=== PATIENT | male | born 1930 | race Caucasian/White ===

== ENCOUNTER 2016-12-21 11:14 | Inpatient (IN) ==
[2016-12-21 12:43] LABS: Basophils # (Auto) 0.1 K/mcL (0.0-0.3); Basophils % (Auto) 2.1 % (0.0-2.0); Eosinophils # (Auto) 0.2 K/mcL (0.0-0.7); Eosinophils % (Auto) 3.6 % (0.0-7.0); Granulocytes % (Auto) 61.4 % (38.0-78.0); Lymphocytes # (Auto) 1.2 K/mcL (1.5-4.8); Mean Cell Volume 95.1 fL (80.0-100.0); Mean Corpuscular HGB Conc 33.4 g/dL (31.0-36.0); Mean Corpuscular Hemoglobin 31.8 pg (26.0-34.0); Monocytes # (Auto) 0.4 K/mcL (0.1-0.9); Monocytes % (Auto) 8.9 % (1.0-9.0); Platelet Count 307 K/mcL (140-440); RBC 3.69 M/mcL (4.50-5.90); Red Cell Distribution Width 13.8 % (11.5-14.5)
--- NOTE | 2016-12-21 12:49 | Emergency Department Note ---
[id number] Recheck of lower extremity Time Seen by Provider: 12/21/16 11:28 Source: patient, family Mode of arrival: ambulatory Limitations: no limitations - History of Present Illness HPI Narrative: The patient is an 86-year-old male accompanied today by his son who presents with left lower extremity worsening cellulitis. He was seen here on December 16 and placed on oral Septra and IV think as an outpatient. He is on his sixth and last day of IV vancomycin and they're concerned as his symptoms appear to have gone much worse. His son describes that the left lower extremity swelling has significantly worsened and that the redness has extended up the leg. The patient is endorsing pain in the posterior and lateral aspect of the left lower extremity. He describes pain with slight extension. Reports that it hurts to bear weight on that leg. He denies any fevers, chills or night sweats. Denies any nausea or vomiting. He does have a resolving clot that was seen on ultrasound from December 05. There was no acute DVT at that time. What work from the showed a WBC of 7.2 area he does live alone. According to his son he has battled cellulitis in his left leg now 3 times. It initially occurred back in July, then August and most recently now here in November. He also had pneumonia last April but otherwise is fairly healthy. He does not smoke. Onset (ago): week(s) (1) Location: lower extremity (left) Severity: moderate Worsens with: movement - Related Data Home Medications Medication Instructions Recorded Confirmed ALPRAZolam [Xanax] 0.25 mg PO QHS PRN 12/16/16 12/21/16 Warfarin [Coumadin] 7.5 mg PO .COMPLEX 12/16/16 12/21/16 Previous Rx's Medication Instructions Recorded Hydrochlorothiazide [Oretic] 25 mg PO DAILY tab 05/15/16 Methimazole 10 mg PO MoWeFr@0900 tab 05/15/16 tamsulosin 0.4 mg capsule 0.4 mg PO QDAY #30 cap 09/26/16 metoprolol succinate ER 25 mg 12.5 mg PO DAILY #30 tab 11/19/16 tablet,extended release 24 hr warfarin 5 mg tablet 5 mg PO .COMPLEX #36 tab 11/19/16 Sulfamethoxazole/Trimethoprim 1 tab PO BID #20 tablet 12/16/16 [Bactrim Ds] Allergies Allergy/AdvReac Type Severity Reaction Status Date / Time No Known Drug Allergies Allergy Verified 12/11/16 10:53 Review of Systems All systems ED: reviewed and negative except as stated. Past Medical History - Past Medical History Attestation: Yes: The following information was validated with the patient. Medical history: Reports: arthritis, atrial fibrillation, DVT, hypertension, thyroid disease, other (prostate cancer, left lower extremity cellulitis) Surgical history ED: Reports: orthopedic, other (knee and back surgery) - Social History smoking status: Never smoker Alcohol use: Reports: None Drug use: Reports: none Physical Exam - General Limitations: no limitations, other (elderly) General appearance: alert, in no apparent distress - Head Head exam: atraumatic - ENT ENT exam: normal exam - Neck Neck exam: Present: normal inspection - Chest Chest inspection: Present: normal inspection, symmetric chest wall rise - Respiratory Respiratory exam: Present: normal lung sounds bilaterally - Cardiovascular Cardiovascular exam: Present: regular rate, normal rhythm - Abdominal Exam Abdominal exam: Present: soft, normal bowel sounds - Expanded Lower Extremity Exam Lower leg exam: Present: other (right lower leg has venous stasis present, left lower leg is significantly swollen with darker erythema and skin changes towards the ankle and then brighter erythema extending up more than fci up the calf, warm to the touch, tendern to palpation along posterior aspect of the calf and the lateral side, full flexion without issue at the foot but pain with extension, 2+ pitting edema up until almost the patella. ) Ankle exam: Present: swelling (pitting 2+) Neurovascular/Tendon exam: Present: normal capillary refill - Neurological Exam Neurological exam: Present: alert, oriented X3 - Skin Skin exam: Present: warm, dry, rash (see lower leg exam details) Course Course Narrative: Patient presented for his normal vancomycin infusion glasses symptoms seem to be getting worse and this is his last dose they wanted him checked out. On exam he certainly appears to have worsening lower extremity erythema, warmth and swelling. He does have a known DVT last checked on December 05. Going to get a repeat lower shimmery ultrasound to evaluate for a new thrombus. Also get blood work to evaluate for infection as well as blood cultures to rule out bacteremia. I'm very suspicious that this patient may need to be admitted for IV antibiotics. Follow-up the results Vital Signs Temperature 97.1 F L 12/21/16 11:16 Pulse Rate 67 12/21/16 11:16 Respiratory Rate 18 12/21/16 11:16 Blood Pressure 135/71 12/21/16 11:16 Temperature 98.1 F 12/22/16 04:00 Pulse Rate 72 12/22/16 04:00 Respiratory Rate 16 12/22/16 04:00 Blood Pressure 122/58 12/22/16 04:00 Pulse Oximetry (%) 96 12/22/16 04:00 Medical Decision Making - MDM Narrative Medical decision making narrative: Patient's blood work was unremarkable with a normal white blood cell count. Ultrasound showed his chronic thrombus with no sign of new clot formation. However due to the severity of his erythema and swelling and history of improving with vancomycin in the past I'm very suspicious he is admitted for further observation. Spoke with the hospitalist who agrees with this plan. She has agreed to admit him to the hospital service. - Lab Data Lab results reviewed: Yes I reviewed the patient's lab results. Result diagrams: 12/22/16 03:35 12/21/16 12:00 Lab Results 12/21/16 12/21/16 12/21/16 Range/Units 11:52 12:00 12:00 WBC 5.0 (4.5-11.0) K/mcL RBC 3.69 L (4.50-5.90) M/mcL Hgb 11.7 L (13.5-16.5) g/dL Hct 35.1 L (41.0-55.0) % MCV 95.1 (80.0-100.0) fL MCH 31.8 (26.0-34.0) pg MCHC 33.4 (31.0-36.0) g/dL RDW 13.8 (11.5-14.5) % Plt Count 307 (140-440) K/mcL MPV 7.4 (7.4-10.4) fL Gran % 61.4 (38.0-78.0) % Lymph % (Auto) 24.0 (15.5-49.0) % Waller % (Auto) 8.9 (1.0-9.0) % Eos % (Auto) 3.6 (0.0-7.0) % Baso % (Auto) 2.1 H (0.0-2.0) % Gran # 3.1 (1.8-8.0) K/mcL Lymph # 1.2 L (1.5-4.8) K/mcL Waller # 0.4 (0.1-0.9) K/mcL Eos # 0.2 (0.0-0.7) K/mcL Baso # 0.1 (0.0-0.3) K/mcL ESR 89 H (0-15) mm/hr PT 27.7 H (11.9-14.5) sec INR 2.5 H (0.9-1.1) Sodium 138 (133-145) mmol/L Potassium 4.5 (3.3-5.1) mmol/L Chloride 99 (96-108) mmol/L Carbon Dioxide 26 (22-30) mmol/L Anion Gap 13.0 (8-16) BUN 14 (8-23) mg/dl Creatinine 1.1 (0.7-1.2) mg/dl GFR Calculation 60 Glucose 96 (70-105) mg/dL Hemoglobin A1c (4.0-6.0) % HGB Estim Average Glucose mg/dL Calcium 9.4 (8.6-10.4) mg/dl Total Bilirubin 0.3 (0.0-1.0) mg/dL AST 12 (0-37) U/l ALT 11 (0-40) U/l Alkaline Phosphatase 59 (39-117) U/L C-Reactive Protein 4.4 H (0.0-0.8) mg/dl Total Protein 7.3 (5.9-8.4) gm/dL Albumin 3.8 (3.2-5.2) gm/dL Globulin 3.5 (2.2-3.7) gm/dL Albumin/Globulin Ratio 1.1 (1.0-2.3) Urine Color Urine Appearance Urine pH (5.0-9.0) Ur Specific Riparius (1.000-1.035) Urine Protein (NEG) mg/dL Urine Glucose (UA) (NEG) mg/dL Urine Ketones (NEG) mg/dL Urine Occult Blood (<0.03) mg/dL Urine Nitrate (NEG) Urine Bilirubin (NEG) mg/dL Urine Urobilinogen (NEG) mg/dL Ur Leukocyte Esterase (NEG) /uL Urine RBC (0-1) /hpf Urine WBC (0-4) /hpf Ur Squamous Epith Cells (0-4) /hpf Urine Bacteria (0) /hpf Ur Culture Indicated? 12/21/16 12/21/16 Range/Units 12:00 13:07 WBC (4.5-11.0) K/mcL RBC (4.50-5.90) M/mcL Hgb (13.5-16.5) g/dL Hct (41.0-55.0) % MCV (80.0-100.0) fL MCH (26.0-34.0) pg MCHC (31.0-36.0) g/dL RDW (11.5-14.5) % Plt Count (140-440) K/mcL MPV (7.4-10.4) fL Gran % (38.0-78.0) % Lymph % (Auto) (15.5-49.0) % Waller % (Auto) (1.0-9.0) % Eos % (Auto) (0.0-7.0) % Baso % (Auto) (0.0-2.0) % Gran # (1.8-8.0) K/mcL Lymph # (1.5-4.8) K/mcL Waller # (0.1-0.9) K/mcL Eos # (0.0-0.7) K/mcL Baso # (0.0-0.3) K/mcL ESR (0-15) mm/hr PT (11.9-14.5) sec INR (0.9-1.1) Sodium (133-145) mmol/L Potassium (3.3-5.1) mmol/L Chloride (96-108) mmol/L Carbon Dioxide (22-30) mmol/L Anion Gap (8-16) BUN (8-23) mg/dl Creatinine (0.7-1.2) mg/dl GFR Calculation Glucose (70-105) mg/dL Hemoglobin A1c 6.1 H (4.0-6.0) % HGB Estim Average Glucose 128 mg/dL Calcium (8.6-10.4) mg/dl Total Bilirubin (0.0-1.0) mg/dL AST (0-37) U/l ALT (0-40) U/l Alkaline Phosphatase (39-117) U/L C-Reactive Protein (0.0-0.8) mg/dl Total Protein (5.9-8.4) gm/dL Albumin (3.2-5.2) gm/dL Globulin (2.2-3.7) gm/dL Albumin/Globulin Ratio (1.0-2.3) Urine Color Yellow Urine Appearance Clear Urine pH 7.0 (5.0-9.0) Ur Specific Riparius 1.009 (1.000-1.035) Urine Protein Neg (NEG) mg/dL Urine Glucose (UA) Negative (NEG) mg/dL Urine Ketones Neg (NEG) mg/dL Urine Occult Blood Neg (<0.03) mg/dL Urine Nitrate Neg (NEG) Urine Bilirubin Neg (NEG) mg/dL Urine Urobilinogen Neg (NEG) mg/dL Ur Leukocyte Esterase Neg (NEG) /uL Urine RBC 9 H (0-1) /hpf Urine WBC 2 (0-4) /hpf Ur Squamous Epith Cells 0 (0-4) /hpf Urine Bacteria 0 (0) /hpf Ur Culture Indicated? No Disposition Clinical Impression: Cellulitis Disposition: Xfer As Inpt ([facility]) Condition: Fair
[2016-12-21 13:03] LABS: ALT/SGPT 11 U/l (0-40); Albumin 3.8 gm/dL (3.2-5.2); Albumin/Globulin Ratio 1.1 (1.0-2.3); Alkaline Phosphatase 59 U/L (39-117); Blood Urea Nitrogen 14 mg/dl (8-23); C-Reactive Protein 4.4 mg/dl (0.0-0.8)
[2016-12-21 13:23] LABS: Erythrocyte Sedimentation Rate 89 mm/hr (0-15)
--- NOTE | 2016-12-21 13:30 | Ultrasound Report ---
CLINICAL INFORMATION: Leg pain and swelling TECHNIQUE: Grayscale and color flow spectral imaging COMPARISON: Previous examinations dated 12/05/2016, 04/17/2016, 06/12/2016 FINDINGS: Changes consistent with chronic deep venous thrombosis in the distal superficial femoral vein and popliteal vein. Appearance is consistent with recanalized clot. This is nonocclusive. No new abnormalities. Normal left common femoral vein, greater saphenous vein, posterior tibial veins, and peroneal veins. IMPRESSION: 1. Chronic recanalized clot in the left superficial femoral vein and popliteal vein. Findings are unchanged. 2. No new abnormalities. No acute deep venous thrombosis Interpreted and Authenticated by: Fernando Bajwa 12/21/16
[2016-12-21 13:38] LABS: Appearance,Urine CLEAR; Bacteria,Urine 0 /hpf (0); Bilirubin,Urine NEG (NEG); Color,Urine YELLOW; Glucose,Urine (UA) NEGATIVE (NEG); Leukocyte Esterase,Urine NEG /uL (NEG); Nitrate,Urine NEG (NEG); Protein,Urine NEG (NEG); Specific Gravity,Urine 1.009 (1.000-1.035); Urine Blood NEG mg/dL (<0.03); Urine RBC 9 /hpf (0-1); Urine Squamous Epithelial Cell 0 /hpf (0-4); Urine WBC 2 /hpf (0-4); Urobilinogen,Urine NEG (NEG)
--- NOTE | 2016-12-21 16:24 | Internal Med History&Physical ---
Medical - H&P: HPI Patient information: Note initiated : 12/21/16 at 4:24 pm Service Date, if different from initiated Date: [] Patient: Mak Persaud 86 y/o M admitted on for Recheck of lower extremity. Chief Complaint: [] History of present illness: Mr. Persaud is a 86 year old male with a recent history of stubborn cellulitis of his left lower extremity. He and his son tell me that he was diagnosed with left lower extremity cellulitis several weeks ago. He was given a course of oral antibiotics, and seemed to get better. Shortly after that the cellulitis recurred, and he was treated with another round of antibiotics, which seemed to improve things then. He then developed a third episode andhe was ultimately started on IV vancomycin plus oral Septra. he came in today for his final dose of vancomycin, but the son noted that his leg is now even more swollen and more red than it was a few days ago He was therefore sent over to the emergency room for evaluation. The patient reports he has not been having fever or chills. But he has been having increasing discomfort in the left lower leg. He is also noticed the increased swelling and increased redness and warmth. He is no longer wearing the compression hose on that leg. He notes he does not do a lot of sitting around, and is usually up walking around quite a bit during the day. eR evaluation did not show an elevated white blood cell count but clinically his leg is definitely getting worse. he is afebrile. white blood cell count is normal.owever, sedimentation rate is quite high at 89. C-reactive protein is also elevated at 4.4. It is felt that he is definitely failing outpatient management, and is therefore admitted for further investigation and treatment. otherwise, the patient notes that he is lightheaded when he first stands up, and tends to have poor balance, when he first tries to walk in the morning, but this resolves within a minute or so. He denies blurry vision, new eye or ear symptoms, sore throat or cough, chest pain or palpitations, chest pain or shortness of breath abdominal pain or nausea or vomiting, diarrhea or constipation. He does note nocturia 3-4 times a night, which has been an ongoing thing.Of note, he was recently diagnosed with prostate cancer and is undergoing hormonal treatment for that. Also he was diagnosed with DVT recently, and is maintained on warfarin for that. Follow-up Doppler ultrasound today showed stable DVT. [facility] Medical History Anxiety (Acute) Arthritis (Acute) 2015 Right hip Atrial fibrillation and flutter (Acute) 2013 Cellulitis of left leg (Acute) Cellulitis of left lower extremity (Acute) 2016 Cellulitis of left lower leg (Acute) Claudication (Acute) DVT (deep venous thrombosis) (Acute) 2016 Lower left leg Elevated d-dimer (Acute) History of cardioversion (Acute) Hypertension (Acute) Hyperthyroidism (Acute) Left leg DVT (Acute) Left leg cellulitis (Acute) Low back pain (Acute) Neuropathy, peripheral (Acute) Peripheral vascular disease (Acute) Pneumonia (Acute) Prostate cancer (Acute) Prostate cancer (Acute) 2015 Stasis dermatitis (Acute) Actinic keratosis (Chronic) of the face (07/29/2014 Dr Abbott) Basal cell carcinoma (Chronic) RT zygoma and RT nasal labial fold (07/29/2014 Dr Abbott) Bleeding tendency (Chronic) Bundle branch block (Chronic) abnormal right Degenerative disc disease, lumbar (Chronic) Degenerative joint disease (DJD) of hip (Chronic) Left hip 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 MAY NOT FILL UNTIL 11/23/16 hydrochlorothiazide 25 mg PO DAILY methimazole 10 mg PO MoWeFr@0900 metoprolol succinate ER 12.5 mg PO DAILY tamsulosin 0.4 mg PO QDAY warfarin 7.5 mg M/W/F, 5 mg x 4 days warfarin 7.5 mg M/W/F, 5 mg x 4 days vancomycinI believe 1 g IV daily, for the last 7 days. Bactrim DS 1 by mouth twice a day Allergies/Adverse Reactions No Known Drug Allergies Allergy Family History Brother History of coronary artery bypass surgery x2 Heart attack Diabetes Peripheral Vascular Disease Father Bladder cancerand perhaps heart disease. Mother Heart attack, mother unexpectedly postoperatively. His son with lung cancer. His daughter with ALS. Social History marital status: single-. Lives alone. smoking status: Former smoker; he smoked from about the age of 18 until 33, and then quit. alcohol intake frequency: does not drink substance use type: does not use he has one son that lives here in the [facility], another son that I believe lives in [place], and then a daughter that lives in [place]. Medical - H&P: Meds Home Medications Medication Instructions Recorded Confirmed Type ALPRAZolam [Xanax] 0.25 mg PO QHS PRN 12/16/16 12/21/16 History Warfarin [Coumadin] 7.5 mg PO .COMPLEX 12/16/16 12/21/16 History Allergies Allergy/AdvReac Type Severity Reaction Status Date / Time No Known Drug Allergies Allergy Verified 12/11/16 10:53 Medical - H&P: Exam - Constitutional Vitals: Temp Pulse Resp BP Pulse Ox 97.1 F L 60 18 154/87 97 12/21/16 11:16 12/21/16 15:58 12/21/16 11:16 12/21/16 15:58 12/21/16 15:58 Exam: on exam, the patient is awake and alert. He is quite hard of hearing, but has a remarkably good memory. Head: Normocephalic, atraumatic. Eyes: PERRLA, EOMI, anicteric. Ears: TMs and canals are clear. Pharynx:Anxious clear, the mucosa is a bit dry. Neck: Is supple, without obvious lymphadenopathy, JVD, thyromegaly, bruits. Cardiac exam: Shows regular rate and rhythmbnormal with normal S1 and S2. No murmurs rubs or gallops are noted. lungs: Are clear to auscultation, without rales, rhonchi, wheezes. Abdomen: Is soft and nontender without obvious masses. Bowel sounds are normoactive. Extremities: Right lower extremity appears fairly normal without significant edema. Left lower extremity: Has marked edema, approximately 4+ and pitting, to about the level of the knee. There is increased redness, and weeping of serous sanguinous fluid. the leg is warm to the touch. It is quite tender. neurologic exam:The patient is alert and oriented, calm and cooperative. He is hard of hearing. Cranial nerves are grossly intact. Motor exam is grossly nonfocal. Medical - H&P: Reslt - Labs CBC & Chem 7: 12/21/16 12:00 12/21/16 12:00 Labs: Short CBC 12/21/16 Range/Units 12:00 WBC 5.0 (4.5-11.0) K/mcL Hgb 11.7 L (13.5-16.5) g/dL Hct 35.1 L (41.0-55.0) % Plt Count 307 (140-440) K/mcL BMP 12/21/16 12:00 Sodium 138 Potassium 4.5 Chloride 99 Carbon Dioxide 26 BUN 14 Creatinine 1.1 Glucose 96 Calcium 9.4 Liver Function 12/21/16 Range/Units 12:00 Total Bilirubin 0.3 (0.0-1.0) mg/dL AST 12 (0-37) U/l ALT 11 (0-40) U/l Alkaline Phosphatase 59 (39-117) U/L Albumin 3.8 (3.2-5.2) gm/dL Urine 12/21/16 Range/Units 13:07 Urine Color Yellow Urine Appearance Clear Urine pH 7.0 (5.0-9.0) Ur Specific [place] 1.009 (1.000-1.035) Urine Protein Neg (NEG) mg/dL Urine Glucose (UA) Negative (NEG) mg/dL sedimentation rate is elevated at 89. CRP is elevated at 4.4 Hemoglobin A1c is pending. Urinalysis shows 9 red blood cells, and is otherwise normal. eft lower extremity venous Doppler shows changes consistent with chronic DVTin the distal superficial femoral and popliteal veins Appearance is consistent with recanalized clot. This is nonocclusive. This is compared to a study from June 12, 2016, and is essentially unchanged. 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 Infectious disease. This patient presents with increasing swelling, erythema, warmth of his left lower extremity. He appears to be failing outpatient management with IV vancomycin plus oral Bactrim. His leg is so swollen that there are no open areas that are weeping fluid. It would appear that perhaps he has developed an infection with a drug-resistant organism.- -He has failed outpatient management. He will now be admitted, and started on ertapenem plus vancomycin.-I have also requested consultation with Dr. Montanez of wound care.-Blood cultures are pending. #2. Patient has known vascular disease, as well as chronic DVT of the left lower extremity. -he will continue with Coumadin, and this will be managed by pharmacy.- -Venous Doppler does not show any signs of new DVT. Chronic DVT could certainly cause increased swelling in the leg, but would not explainthe other signs and symptoms noted in his leg today. #3. CODE STATUS: The patient has a living will that is with his son who is out of town. After discussion with he and the son that it was was in the room, it appears he would like to be full code, but would never like to be maintained on long-term life support. #4. . -Patient has a long-standing history of BPH, and also recent diagnosis of prostate cancer, for which she says he's been treated with hormonetherapy. -Dr. Booker suggested perhaps getting an abdominal CT to be sure there is not metastatic disease in the abdomen that is contributing to the patient's swelling.-Continue tamsulosin, and probably Lupron. 35. Cardiac. -History of paroxysmal atrial fibrillation and DVT. Patient does continue on Coumadin. -Hypertension-continue metoprololand hydrochlorothiazide. #6. History of anxiety.continue when necessary Xanax. #7. History of hyperthyroidism. Patient is maintained on methimazole. #8. History of neuropathy. this visit has taken proximally 60 minutes of our today, to review his case with the [facility], review his records, interview and examine the patient and review plan of care with him and with his son, and write orders.
[2016-12-21] MEDS ORDERED: VANCOMYCIN PER PHARMACY IV ONE (16:39)
[2016-12-21] MEDS ORDERED: CALCIUM CARBONATE 500 MG TAB.CHEW CHEWED PRN (16:39)
[2016-12-21] MEDS ORDERED: ONDANSETRON 4 MG/2 ML VIAL IV PRN (16:39)
[2016-12-21] MEDS ORDERED: MAGNESIUM HYDROXIDE 30 ML ORAL.SUSP PO PRN (16:39)
[2016-12-21] MEDS ORDERED: HYDROcodone/APAP 5/325MG TABLET PO PRN (16:39)
[2016-12-21] MEDS ORDERED: NALOXONE HCL 0.4 MG/ML VIAL IV PRN (16:39)
[2016-12-21] MEDS ORDERED: DOCUSATE SODIUM 100 MG CAPSULE PO PRN (16:39)
[2016-12-21] MEDS ORDERED: ACETAMINOPHEN 325 MG TABLET PO PRN (16:39)
[2016-12-21 17:55] LABS: Hemoglobin A1C 6.1 % HGB (4.0-6.0)
[2016-12-21] MEDS: ERTAPENEM 1 GM in 0.9 % SODIUM CHLORIDE 50 ML IV SCH (20:05)
[2016-12-21] MEDS: ALPRAZolam 0.25 MG TABLET PO PRN (20:06)
[2016-12-21] MEDS ORDERED: WARFARIN 5 MG TABLET PO ONE (21:00)
[2016-12-21] MEDS: 0.9 % SODIUM CHLORIDE 10 ML SYRINGE IV SCH (22:43)
[2016-12-22 05:44] LABS: Mean Cell Volume 96.6 fL (80.0-100.0); Mean Corpuscular HGB Conc 32.9 g/dL (31.0-36.0); Mean Corpuscular Hemoglobin 31.7 pg (26.0-34.0); Platelet Count 277 K/mcL (140-440); RBC 3.43 M/mcL (4.50-5.90); Red Cell Distribution Width 13.7 % (11.5-14.5)
[2016-12-22] MEDS: 0.9 % SODIUM CHLORIDE 10 ML SYRINGE IV SCH ×3 (05:58→21:38)
[2016-12-22 06:32] LABS: Erythrocyte Sedimentation Rate 73 mm/hr (0-15)
[2016-12-22 06:33] LABS: ALT/SGPT 9 U/l (0-40); Albumin 3.4 gm/dL (3.2-5.2); Albumin/Globulin Ratio 1.1 (1.0-2.3); Alkaline Phosphatase 54 U/L (39-117); Bilirubin,Direct < 0.2 mg/dL (0.0-0.3); Blood Urea Nitrogen 14 mg/dl (8-23); Gamma Glutamyl Transpeptidase 15 U/L (8-61); Magnesium 2.2 mg/dL (1.6-2.5); Phosphorous 3.1 mg/dL (2.7-4.5); Uric Acid 2.9 mg/dL (2.5-8.0)
[2016-12-22 07:03] LABS: Band Neutrophils % 2 % (0-10); Eosinophils % (Manual) 8 % (0-7); Lymphocytes % 33 % (15-49); Monocytes % (Manual) 6 % (1-9); Platelet Estimate NORMAL (NORMAL); RBC Morphology NORMAL (NORMAL); Segmented Neutrophils % 49 % (38-78)
[2016-12-22] MEDS: ERTAPENEM 1 GM in 0.9 % SODIUM CHLORIDE 50 ML IV SCH (09:00)
[2016-12-22] MEDS: TAMSULOSIN 0.4 MG CAPSULE PO SCH (09:01)
[2016-12-22] MEDS: METOPROLOL SUCCINATE 25 MG TAB.XL.24H PO SCH (09:01)
[2016-12-22] MEDS: HYDROCHLOROTHIAZIDE 25 MG TABLET PO SCH (09:01)
[2016-12-22] MEDS: VANCOMYCIN 2,000 MG in 0.9 % SODIUM CHLORIDE 500 ML IV SCH (10:34)
--- NOTE | 2016-12-22 11:27 | General Surgery Consult Note ---
[id number] Date: [] Patient: Mak Persaud 86 y/o M admitted on 12/21/16 for Recheck of lower extremity. Chief Complaint: []Admitted via ER to hospitalist service for DVT with cellulitis of LEFT LE. No open skin wound. Patient was seen in wound center in past. 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 Consult date: 12/22/16 Requesting physician: Caterina Cortes History of present illness: Persistent ??? Propagating Venous Thromboembolism LEFT LE. 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 Past h/o Prostrate cancer treated with RT. Patient was last seen in wound center last week, but later he presented to ER and NOW admitted for DVT ( Chronic ) / Cellulitis LEFT LE. Past h/o PNA. Currently has some lightheadedness with change of position , but it improves in a short time. Review of Systems - Constitutional other (No h/o constitutional symptoms. ) - Integumentary change in pigmentation, dry skin, swelling, other (Cellulitis LEFT leg responding to IV antibiotics and elevation) Medications and Allergies Home Medications Medication Instructions Recorded Confirmed Type ALPRAZolam [Xanax] 0.25 mg PO QHS PRN 12/16/16 12/21/16 History Lupron Depot 22.5 mg IM 12/22/16 History Warfarin [Coumadin] 5 mg PO SUMOWEFRSA@1400 12/22/16 12/22/16 History Warfarin [Coumadin] 7.5 mg PO TUTH@1400 12/22/16 12/22/16 History Allergies Allergy/AdvReac Type Severity Reaction Status Date / Time No Known Drug Allergies Allergy Verified 12/11/16 10:53 Exam Temp Pulse Resp BP Pulse Ox 97.3 F L 62 16 142/69 97 12/22/16 11:19 12/22/16 11:19 12/22/16 11:19 12/22/16 11:19 12/22/16 11:19 - General physical appearance well developed, well nourished, no distress, no pain - Eyes PERRL, normal ocular movement - ENT normal pinna, normal nares, normal mucosa, no congestion - Head Head exam IM: Present: atraumatic, normal inspection, normocephalic - Neck no masses, no bruits, trachea midline, no lymphadectomy, no venous distension - Cardiovascular Cardiovascular exam IM: Present: normal rate and rhythm - Respiratory normal expansion, normal respiratory effort, clear to auscultation - Abdomen Abdomen: Present: soft, non tender, bowel sounds - Integumentary Present: other (Pigmentation LLE with resolving cellulitis and peeling away of skin. ) - Neurologic Present: normal coordination, normal sensation - Musculoskeletal Present: normal gait - Psychiatric Present: oriented to time, oriented to person, oriented to place, speech is normal, memory intact Results - Labs 12/23/16 05:10 12/22/16 03:35 Abnormal lab results 12/22/16 12/22/16 Range/Units 03:35 03:35 RBC 3.43 L (4.50-5.90) M/mcL Hgb 10.9 L (13.5-16.5) g/dL Hct 33.1 L (41.0-55.0) % Eosinophils % (Manual) 8 H (0-7) % ESR 73 H (0-15) mm/hr PT 27.7 H (11.9-14.5) sec INR 2.5 H (0.9-1.1) Diabetes panel 12/22/16 Range/Units 03:35 Sodium 138 (133-145) mmol/L Potassium 4.3 (3.3-5.1) mmol/L Chloride 102 (96-108) mmol/L Carbon Dioxide 25 (22-30) mmol/L BUN 14 (8-23) mg/dl Creatinine 1.0 (0.7-1.2) mg/dl Glucose 96 (70-105) mg/dL Calcium 9.1 (8.6-10.4) mg/dl AST 11 (0-37) U/l ALT 9 (0-40) U/l Alkaline Phosphatase 54 (39-117) U/L Total Protein 6.6 (5.9-8.4) gm/dL Albumin 3.4 (3.2-5.2) gm/dL Triglycerides 55 (<150) mg/dl Calcium panel 12/22/16 Range/Units 03:35 Calcium 9.1 (8.6-10.4) mg/dl Phosphorus 3.1 (2.7-4.5) mg/dL Albumin 3.4 (3.2-5.2) gm/dL Pituitary panel 12/22/16 Range/Units 03:35 Sodium 138 (133-145) mmol/L Potassium 4.3 (3.3-5.1) mmol/L Chloride 102 (96-108) mmol/L Carbon Dioxide 25 (22-30) mmol/L BUN 14 (8-23) mg/dl Creatinine 1.0 (0.7-1.2) mg/dl Glucose 96 (70-105) mg/dL Calcium 9.1 (8.6-10.4) mg/dl Adrenal panel 12/22/16 Range/Units 03:35 Sodium 138 (133-145) mmol/L Potassium 4.3 (3.3-5.1) mmol/L Chloride 102 (96-108) mmol/L Carbon Dioxide 25 (22-30) mmol/L BUN 14 (8-23) mg/dl Creatinine 1.0 (0.7-1.2) mg/dl Glucose 96 (70-105) mg/dL Calcium 9.1 (8.6-10.4) mg/dl Total Bilirubin 0.3 (0.0-1.0) mg/dL AST 11 (0-37) U/l ALT 9 (0-40) U/l Alkaline Phosphatase 54 (39-117) U/L Total Protein 6.6 (5.9-8.4) gm/dL Albumin 3.4 (3.2-5.2) gm/dL All other labs normal. Assessment and Plan (1) Thrombophlebitis, migratory Past h/o Prostrate Cancer treated with RT. Concerning for vena caval thrombosis. Need to rule this out. Will await a CT scan of abdomen, pelvis with IV and PO contrast. Agree with IV antibiotics for cellulitis of Left leg and conservative management for leg swelling with elevation. Status: Suspected Priority: Medium
--- NOTE | 2016-12-22 13:35 | Internal Med Progress Note ---
Medical - PN: Subj Patient information: Note initiated : 12/22/16 at 1:35 pm Service Date, if different from initiated Date: [] Patient: Mak Persaud 86 y/o M admitted on 12/21/16 for Recheck of lower extremity. Chief Complaint: [] Interval history: 12/21/16:History of present illness: Mr. Persaud is a 86 year old male with a recent history of stubborn cellulitis of his left lower extremity. He and his son tell me that he was diagnosed with left lower extremity cellulitis several weeks ago. He was given a course of oral antibiotics, and seemed to get better. Shortly after that the cellulitis recurred, and he was treated with another round of antibiotics, which seemed to improve things then. He then developed a third episode andhe was ultimately started on IV vancomycin plus oral Septra. he came in today for his final dose of vancomycin, but the son noted that his leg is now even more swollen and more red than it was a few days ago He was therefore sent over to the emergency room for evaluation. The patient reports he has not been having fever or chills. But he has been having increasing discomfort in the left lower leg. He is also noticed the increased swelling and increased redness and warmth. He is no longer wearing the compression hose on that leg. He notes he does not do a lot of sitting around, and is usually up walking around quite a bit during the day. eR evaluation did not show an elevated white blood cell count but clinically his leg is definitely getting worse. he is afebrile. white blood cell count is normal.owever, sedimentation rate is quite high at 89. C-reactive protein is also elevated at 4.4. It is felt that he is definitely failing outpatient management, and is therefore admitted for further investigation and treatment. otherwise, the patient notes that he is lightheaded when he first stands up, and tends to have poor balance, when he first tries to walk in the morning, but this resolves within a minute or so. He denies blurry vision, new eye or ear symptoms, sore throat or cough, chest pain or palpitations, chest pain or shortness of breath abdominal pain or nausea or vomiting, diarrhea or constipation. He does note nocturia 3-4 times a night, which has been an ongoing thing.Of note, he was recently diagnosed with prostate cancer and is undergoing hormonal treatment for that. Also he was diagnosed with DVT recently, and is maintained on warfarin for that. Follow-up Doppler ultrasound today showed stable DVT. 12/22: the patient says he thinks he is feeling better today. He is really not having much discomfort in his leg, and does think it is less swollen. He notes he met with Dr. Montanez earlier today, who wants to do a CAT scan. Otherwise, patient denies fever or chills, chest pain or shortness of breath, abdominal pain, dysuria. - Constitutional Vitals: Vital Signs Temp Pulse Resp BP Pulse Ox 97.3 F L 62 16 142/69 97 12/22/16 11:19 12/22/16 11:19 12/22/16 11:19 12/22/16 11:19 12/22/16 11:19 Period Temp Pulse Resp BP Sys/Clark Pulse Ox Last 24 Hr 97.3 F-98.1 F 62-74 16-18 118-148/53-80 95-98 Intake and Output 12/21/16 12/22/16 12/22/16 21:59 05:59 13:59 Intake Total 290 / 290 300 / 300 1130 / 1130 Output Total 575 / 575 350 / 350 Balance -285 / -285 -50 / -50 1130 / 1130 Weight 214 lb Intake & Output: Intake & Output 12/21/16 12/22/16 12/22/16 21:59 05:59 13:59 Intake Total 290 / 290 300 / 300 1130 / 1130 Output Total 575 / 575 350 / 350 Balance -285 / -285 -50 / -50 1130 / 1130 Weight 214 lb Intake: IV 50 / 50 50 / 50 Sodium Chloride 0.9% 50 50 / 50 50 / 50 ml @ 100 mls/hr IV DAILY DIPTI with INVanz 1 GM Rx#: [id number] Oral 240 / 240 300 / 300 1080 / 1080 Output: Void Amount 575 / 575 350 / 350 Other: Meal Dinner Breakfast Percent of Meal Consumed 100% 100% Feeding Ability Independent Independent # Voids 1 Exam: on exam, patient is sitting up in a chair, visiting with his granddaughter. He is in no acute distress. Neck is supple without obvious lymphadenopathy or JVD. Cardiac exam shows regular rate and rhythm. Lungs are clear to auscultation. Abdomen is soft and nontender. Extremities:Right lower extremity shows no edema. Left lower extremity continues to show significant edema, but the bright red colorbfrom last night is markedly less intense, and the swelling has decreased quite a bit as well. Neurologic exam is grossly nonfocal. Medical - PN: Obj Da - Labs CBC & Chem 7: 12/22/16 03:35 12/22/16 03:35 Labs: Abnormal Lab Results 12/22/16 12/22/16 03:35 03:35 RBC 3.43 L Hgb 10.9 L Hct 33.1 L Eosinophils % (Manual) 8 H ESR 73 H PT 27.7 H INR 2.5 H 12/22: Blood cultures are negative so far. 12/21: sedimentation rate is elevated at 89. CRP is elevated at 4.4 Hemoglobin A1c is pending. Urinalysis shows 9 red blood cells, and is otherwise normal. left lower extremity venous Doppler shows changes consistent with chronic DVTin the distal superficial femoral and popliteal veins Appearance is consistent with recanalized clot. This is nonocclusive. This is compared to a study from June 12, 2016, and is essentially unchanged. Meds: Medications Acetaminophen (Tylenol) 650 mg PO Q6HP PRN PRN Reason: PAIN/FEVER > 101 Acetaminophen/Hydrocodone Bitart ([place] 5/325mg) 1 tab PO Q4HP PRN PRN Reason: Pain Alprazolam (Xanax) 0.25 mg PO QHS PRN PRN Reason: Anxiety Last Admin: 12/21/16 20:06 Dose: 0.25 mg Calcium Carbonate/Glycine (Tums) 1,000 mg CHEWED Q4HP PRN PRN Reason: Dyspepsia Docusate Sodium (Colace) 100 mg PO BID PRN PRN Reason: Constipation Hydrochlorothiazide (Oretic) 25 mg PO DAILY [facility] Last Admin: 12/22/16 09:01 Dose: 25 mg Ertapenem 1 gm/ Sodium (Chloride) 50 mls @ 100 mls/hr IV DAILY [facility] Last Infusion: 12/22/16 09:30 Dose: Infused Vancomycin HCl 2,000 mg/ (Sodium Chloride) 500 mls @ 250 mls/hr IV DAILY [facility] Last Admin: 12/22/16 10:34 Dose: 250 mls/hr Magnesium Hydroxide (Milk Of Magnesia) 30 ml PO DAILYP PRN PRN Reason: Constipation Methimazole (Methimazole) 10 mg PO MoWeFr@0900 [facility] Metoprolol Succinate (Toprol Xl) 12.5 mg PO DAILY [facility] Last Admin: 12/22/16 09:01 Dose: 12.5 mg Naloxone HCl (Narcan) 0.1 mg IV Q2MIN PRN PRN Reason: Opiate Reversal Ondansetron HCl (Zofran) 4 mg IV Q6HP PRN PRN Reason: Nausea And Vomiting Sodium Chloride (Saline Flush) 10 ml IV Q8 [facility] Last Admin: 12/22/16 05:58 Dose: 10 ml Tamsulosin HCl (Flomax) 0.4 mg PO QDAY [facility] Last Admin: 12/22/16 09:01 Dose: 0.4 mg Warfarin Sodium (Coumadin) 7.5 mg PO TuTh@1400 [facility] Warfarin Sodium (Coumadin) 5 mg PO SuMoWeFrSa@1400 [facility] Medical - PN: A/P - Time Spent With Patient Total time spent is greater than 50% in coordination of care (as documented) at patient's floor/unit and/or counseling patient: (1) 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 Infectious disease. This patient presents with increasing swelling, erythema, warmth of his left lower extremity. He appears to be failing outpatient management with IV vancomycin plus oral Bactrim. His leg is so swollen that there are open areas that are weeping fluid. It would appear that perhaps he has developed an infection with a drug-resistant organism.- -He has failed outpatient management. He is now admitted, and started on ertapenem plus vancomycin.-I have also requested consultation with Dr. Montanez of wound care. -Blood cultures are negative so far. -sedimentation rate is improved today. #2. Patient has known vascular disease, as well as chronic DVT of the left lower extremity. -he will continue with Coumadin, and this will be managed by pharmacy.- -Venous Doppler does not show any signs of new DVT. #3. CODE STATUS: The patient has a living will that is with his son who is out of town. After discussion with he and the son that it was was in the room, it appears he would like to be full code, but would never like to be maintained on long-term life support. #4. . -Patient has a long-standing history of BPH, and also recent diagnosis of prostate cancer, for which she says he's been treated with Lupron therapy. -Dr. Booker suggested perhaps getting an abdominal CT to be sure there is not metastatic disease in the abdomen that is contributing to the patient's swelling. -Continue tamsulosin, and Lupron (every 3 months). 35. Cardiac. -History of paroxysmal atrial fibrillation and DVT. Patient does continue on Coumadin. INR is therapeutic today. -Hypertension-continue metoprolol and hydrochlorothiazide. #6. History of anxiety.continue when necessary Xanax. #7. History of hyperthyroidism. Patient is maintained on methimazole. #8. History of neuropathy. approximate 30 minutes was spent today, reviewing patient's test results, interviewing and examining the patient, reviewing Dr. Montanez's plan of care, and writing orders. Medical - PN: Qual - Stroke Symptom Onset Unknown: No - VTE Deep Vein Thrombosis/Pulmonary Embolism Present on Admission: No
[2016-12-22] MEDS: WARFARIN 5 MG TABLET PO SCH (14:03)
[2016-12-22] MEDS: LEUPROLIDE ACETATE 45 MG IM SCH ×2 (17:54→17:55)
[2016-12-22] MEDS: ALPRAZolam 0.25 MG TABLET PO PRN (19:48)
[2016-12-23 07:18] LABS: Mean Cell Volume 96.1 fL (80.0-100.0); Mean Corpuscular HGB Conc 33.2 g/dL (31.0-36.0); Mean Corpuscular Hemoglobin 31.9 pg (26.0-34.0); Platelet Count 304 K/mcL (140-440); RBC 3.72 M/mcL (4.50-5.90); Red Cell Distribution Width 13.7 % (11.5-14.5)
[2016-12-23 07:59] LABS: ALT/SGPT 9 U/l (0-40); Albumin 3.6 gm/dL (3.2-5.2); Albumin/Globulin Ratio 1.2 (1.0-2.3); Alkaline Phosphatase 59 U/L (39-117); Bilirubin,Direct < 0.2 mg/dL (0.0-0.3); Blood Urea Nitrogen 13 mg/dl (8-23); Gamma Glutamyl Transpeptidase 15 U/L (8-61); Magnesium 2.2 mg/dL (1.6-2.5); Phosphorous 3.1 mg/dL (2.7-4.5)
[2016-12-23] MEDS ORDERED: IOPAMIDOL 100 ML BOTTLE IV ONE (08:20)
--- NOTE | 2016-12-23 09:04 | Cat Scan Report ---
CLINICAL INFORMATION: History of prostate cancer. History of venous thrombosis. Possible paraneoplastic syndrome COMPARISON: Abdominal CT scan dated 08/29/2016. Chest CT scan dated 05/11/2016 and 10/26/2015 TECHNIQUE: Axial images were obtained through the abdomen and pelvis. Sagittally and coronally reformatted images. 80 mL nonionic contrast material injected intravenously. Oral contrast material was given FINDINGS: There are bilateral pleural-based partially calcified masses. These appear stable. Findings suggest previous asbestos exposure. There is an exophytic mass in the right lobe of the liver. This is consistent with hemangioma. This is unchanged. This is benign. No other focal intrahepatic abnormality. Liver contour is mildly irregular and nodular. No new focal intrahepatic abnormality. Gallbladder is present. No calcified gallstones. No dilated bile ducts. Negative spleen. No splenomegaly. Normal enhancement of splenic and portal veins. Negative pancreas. No pancreatic mass. No peripancreatic abnormality. Negative adrenal glands. Negative kidneys. No solid mass. There is a small benign left renal cyst. No hydronephrosis. There is calcification of the abdominal aorta. No abdominal aortic aneurysm. 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 No detectable solid bladder mass. Colon appears negative. No colonic mass. No diverticulitis. No appendicitis. No free intraperitoneal fluid. No localized fluid collections. No pneumoperitoneum. No biliary or portal venous gas. No pneumatosis. No lumbar compression fracture. No lytic lesion. No sclerotic lesion. No evidence for prostatic metastases. Sacrum and pelvis are negative. No significant retroperitoneal lymphadenopathy. No mesenteric adenopathy. No mechanical small bowel obstruction. IMPRESSION: 1. Bilateral pleural based pulmonary parenchymal masses with calcification. 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 2. Left-sided bladder diverticulum. 3. Nodular configuration of the liver. 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 There is a benign exophytic hemangioma. 4. No significant interval change. Interpreted and Authenticated by: Fernando Bajwa 12/23/16
[2016-12-23] MEDS: HYDROCHLOROTHIAZIDE 25 MG TABLET PO SCH (09:07)
[2016-12-23] MEDS: TAMSULOSIN 0.4 MG CAPSULE PO SCH (09:07)
[2016-12-23] MEDS: METOPROLOL SUCCINATE 25 MG TAB.XL.24H PO SCH (09:07)
[2016-12-23] MEDS: ERTAPENEM 1 GM in 0.9 % SODIUM CHLORIDE 50 ML IV SCH (10:20)
[2016-12-23 10:25] LABS: Erythrocyte Sedimentation Rate 72 mm/hr (0-15)
[2016-12-23 10:31] LABS: Band Neutrophils % 1 % (0-10); Eosinophils % (Manual) 7 % (0-7); Lymphocytes % 42 % (15-49); Monocytes % (Manual) 9 % (1-9); Platelet Estimate NORMAL (NORMAL); RBC Morphology NORMAL (NORMAL); Segmented Neutrophils % 41 % (38-78)
[2016-12-23] MEDS: VANCOMYCIN 1,500 MG in 0.9 % SODIUM CHLORIDE 500 ML IV SCH (11:16)
[2016-12-23] MEDS: 0.9 % SODIUM CHLORIDE 10 ML SYRINGE IV SCH ×3 (13:05→21:17)
[2016-12-23] MEDS: WARFARIN 5 MG TABLET PO SCH (15:13)
[2016-12-23] MEDS: METHIMAZOLE 10 MG TABLET PO SCH (15:20)
--- NOTE | 2016-12-23 16:51 | Internal Med Progress Note ---
Medical - PN: Subj Patient information: Note initiated : 12/23/16 at 4:50 pm Service Date, if different from initiated Date: [] Patient: Mak Persaud 86 y/o M admitted on 12/21/16 for Recheck of Lower Extremity/Cellulitis. Chief Complaint: [] Interval history: 12/21/16:History of present illness: Mr. Persaud is a 86 year old male with a recent history of stubborn cellulitis of his left lower extremity. He and his son tell me that he was diagnosed with left lower extremity cellulitis several weeks ago. He was given a course of oral antibiotics, and seemed to get better. Shortly after that the cellulitis recurred, and he was treated with another round of antibiotics, which seemed to improve things then. He then developed a third episode andhe was ultimately started on IV vancomycin plus oral Septra. he came in today for his final dose of vancomycin, but the son noted that his leg is now even more swollen and more red than it was a few days ago He was therefore sent over to the emergency room for evaluation. The patient reports he has not been having fever or chills. But he has been having increasing discomfort in the left lower leg. He is also noticed the increased swelling and increased redness and warmth. He is no longer wearing the compression hose on that leg. He notes he does not do a lot of sitting around, and is usually up walking around quite a bit during the day. eR evaluation did not show an elevated white blood cell count but clinically his leg is definitely getting worse. he is afebrile. white blood cell count is normal.owever, sedimentation rate is quite high at 89. C-reactive protein is also elevated at 4.4. It is felt that he is definitely failing outpatient management, and is therefore admitted for further investigation and treatment. otherwise, the patient notes that he is lightheaded when he first stands up, and tends to have poor balance, when he first tries to walk in the morning, but this resolves within a minute or so. He denies blurry vision, new eye or ear symptoms, sore throat or cough, chest pain or palpitations, chest pain or shortness of breath abdominal pain or nausea or vomiting, diarrhea or constipation. He does note nocturia 3-4 times a night, which has been an ongoing thing.Of note, he was recently diagnosed with prostate cancer and is undergoing hormonal treatment for that. Also he was diagnosed with DVT recently, and is maintained on warfarin for that. Follow-up Doppler ultrasound today showed stable DVT. 12/22: the patient says he thinks he is feeling better today. He is really not having much discomfort in his leg, and does think it is less swollen. He notes he met with Dr. Montanez earlier today, who wants to do a CAT scan. Otherwise, patient denies fever or chills, chest pain or shortness of breath, abdominal pain, dysuria. 12/23:today, the patient notes he is feeling quite well. He is still having swelling notes it can be uncomfortable to try to elevate left leg very high, especially at home. Otherwise, he denies fever or chills, chest pain or shortness of breath, abdominal pain or nausea or vomiting, diarrhea or constipation, dysuria. - Constitutional Vitals: Vital Signs Temp Pulse Resp BP Pulse Ox 93.9 F L 64 18 150/80 99 12/23/16 16:00 12/23/16 16:00 12/23/16 16:00 12/23/16 11:38 12/23/16 16:00 Period Temp Pulse Resp BP Sys/Clark Pulse Ox Last 24 Hr 93.9 F-98.1 F 62-75 18-20 123-157/64-87 96-99 Intake and Output 12/23/16 12/23/16 12/23/16 05:59 13:59 21:59 Intake Total 50 / 50 670 / 670 Output Total 1075 / 1075 Balance -1025 / -1025 670 / 670 Weight 214 lb Patient Weight 12/24/16 05:59 Weight 214 lb Intake & Output: Intake & Output 12/23/16 12/23/16 12/23/16 05:59 13:59 21:59 Intake Total 50 / 50 670 / 670 Output Total 1075 / 1075 Balance -1025 / -1025 670 / 670 Weight 214 lb Intake: IV 550 / 550 Sodium Chloride 0.9% 50 50 / 50 ml @ 100 mls/hr IV DAILY DIPTI with INVanz 1 GM Rx#: [id number] Sodium Chloride 0.9% 500 500 / 500 ml @ 333.333 mls/hr IV DAILY DIPTI with Vancomycin 1,500 mg Rx#:[id number] Oral 50 / 50 120 / 120 Output: Void Amount 1075 / 1075 Other: Meal Breakfast Percent of Meal Consumed 100% Feeding Ability Independent # Bowel Movements 1 Exam: he is in no acute distress. Neck is supple without obvious lymphadenopathy or JVD. Cardiac exam showsregular rate and rhythm. Lungs are clear to auscultation. Abdomen is soft and nontender. Right lower extremity is normal in appearance. Left lower extremity: Continues to show significant, 3-4+ edema up to about the knee. He has significant purplish discolorationfrom the foot up to a few inches below the knee. The area certainly less bright red and less warm than previously. It is still rather tender. Medical - PN: Obj Da - Labs CBC & Chem 7: 12/23/16 05:10 12/23/16 05:10 Labs: Abnormal Lab Results 12/23/16 12/23/16 12/23/16 07:20 05:10 05:10 WBC 4.4 L RBC 3.72 L Hgb 11.9 L Hct 35.7 L Eosinophils % (Manual) ESR 72 H PT 26.9 H INR 2.4 H Vancomycin Trough 16.2 H 12/22/16 12/22/16 03:35 03:35 WBC RBC 3.43 L Hgb 10.9 L Hct 33.1 L Eosinophils % (Manual) 8 H ESR 73 H PT 27.7 H INR 2.5 H Vancomycin Trough 12/22: Blood cultures are negative so far. -C. difficile screen is negative. -CT of the chest and abdomen today shows nodular liver, consistent with cirrhosis. Also bilateral pleural-based masses consistent with asbestosis. Also left-sided bladder diverticulum. Also a benign exophytic hemangioma of the liver. 12/21: sedimentation rate is elevated at 89. CRP is elevated at 4.4 Hemoglobin A1c is pending. Urinalysis shows 9 red blood cells, and is otherwise normal. left lower extremity venous Doppler shows changes consistent with chronic DVTin the distal superficial femoral and popliteal veins Appearance is consistent with recanalized clot. This is nonocclusive. This is compared to a study from June 12, 2016, and is essentially unchanged. Meds: Medications Acetaminophen (Tylenol) 650 mg PO Q6HP PRN PRN Reason: PAIN/FEVER > 101 Acetaminophen/Hydrocodone Bitart (Falcon 5/325mg) 1 tab PO Q4HP PRN PRN Reason: Pain Alprazolam (Xanax) 0.25 mg PO QHS PRN PRN Reason: Anxiety Last Admin: 12/22/16 19:48 Dose: 0.25 mg Calcium Carbonate/Glycine (Tums) 1,000 mg CHEWED Q4HP PRN PRN Reason: Dyspepsia Docusate Sodium (Colace) 100 mg PO BID PRN PRN Reason: Constipation Hydrochlorothiazide (Oretic) 25 mg PO DAILY [facility] Last Admin: 12/23/16 09:07 Dose: 25 mg Ertapenem 1 gm/ Sodium (Chloride) 50 mls @ 100 mls/hr IV DAILY [facility] Last Infusion: 12/23/16 11:00 Dose: Infused Vancomycin HCl 1,500 mg/ (Sodium Chloride) 500 mls @ 333.333 mls/hr IV DAILY [facility] Last Infusion: 12/23/16 13:39 Dose: Infused Magnesium Hydroxide (Milk Of Magnesia) 30 ml PO DAILYP PRN PRN Reason: Constipation Methimazole (Methimazole) 10 mg PO MoWeFr@0900 [facility] Last Admin: 12/23/16 15:20 Dose: 10 mg Metoprolol Succinate (Toprol Xl) 12.5 mg PO DAILY [facility] Last Admin: 12/23/16 09:07 Dose: 12.5 mg Naloxone HCl (Narcan) 0.1 mg IV Q2MIN PRN PRN Reason: Opiate Reversal Ondansetron HCl (Zofran) 4 mg IV Q6HP PRN PRN Reason: Nausea And Vomiting Sodium Chloride (Saline Flush) 10 ml IV Q8 [facility] Last Admin: 12/23/16 13:38 Dose: 10 ml Tamsulosin HCl (Flomax) 0.4 mg PO QDAY [facility] Last Admin: 12/23/16 09:07 Dose: 0.4 mg Warfarin Sodium (Coumadin) 7.5 mg PO TuTh@1400 [facility] Warfarin Sodium (Coumadin) 5 mg PO SuMoWeFrSa@1400 [facility] Last Admin: 12/23/16 15:13 Dose: 5 mg Medical - PN: A/P - Time Spent With Patient Total time spent is greater than 50% in coordination of care (as documented) at patient's floor/unit and/or counseling patient: (1) 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 Infectious disease. This patient presents with increasing swelling, erythema, warmth of his left lower extremity. He appears to have failed outpatient management with IV vancomycin plus oral Bactrim. His leg is so swollen that there are open areas that are weeping fluid. It would appear that perhaps he has developed an infection with a drug-resistant organism.- He is now admitted, and started on ertapenem plus vancomycin.-I have also requested consultation with Dr. Montanez of wound care. -Blood cultures are negative so far. -sedimentation rate is improved . -the patient appears to be improving. If he is doing as well tomorrow, I think he could be discharged to home, and, in for outpatient IV antibiotics once a day , both with ertapenem as well as vancomycin. #2. Patient has known vascular disease, as well as chronic DVT of the left lower extremity. -he will continue with Coumadin, and this will be managed by pharmacy.- INR is therapeutic today. -Venous Doppler does not show any signs of new DVT. -Dr. Montanez was concerned about possible migratory clots, but CT scan done today doesn't show any signs of malignancy in the abdomen. #3. CODE STATUS: The patient has a living will that is with his son who is out of town. After discussion with he and the son that it was was in the room, it appears he would like to be full code, but would never like to be maintained on long-term life support. #4. . -Patient has a long-standing history of BPH, and also recent diagnosis of prostate cancer, for which she says he's been treated with Lupron therapy. -Dr. Booker suggested perhaps getting an abdominal CT to be sure there is not metastatic disease in the abdomen that is contributing to the patient's swelling.see above. -Continue tamsulosin, and Lupron (every 3 months). 35. Cardiac. -History of paroxysmal atrial fibrillation and DVT. Patient does continue on Coumadin. INR is therapeutic today. -Hypertension-continue metoprolol and hydrochlorothiazide. #6. History of anxiety.continue when necessary Xanax. #7. History of hyperthyroidism. Patient is maintained on methimazole. #8. History of neuropathy. approximate 30 minutes was spent today, reviewing patient's test results, interviewing and examining the patient, discussing the case with Dr. Montanez, and writing orders. Medical - PN: Qual - Stroke Symptom Onset Unknown: No - VTE Deep Vein Thrombosis/Pulmonary Embolism Present on Admission: No
[2016-12-23] MEDS: VANCOMYCIN 2,000 MG in 0.9 % SODIUM CHLORIDE 500 ML IV SCH (17:37)
--- NOTE | 2016-12-23 18:05 | General Surgery Progress Note ---
Subjective Patient reports: other (Reviewed CT scan of abdomen and pelvis with iv/po contrast. Spoke with patient and family.) Narrative: Note initiated : 12/23/16 at 6:03 pm Service Date, if different from initiated Date: [] Patient: Mak Persaud 86 y/o M admitted on 12/21/16 for Recheck of Lower Extremity/Cellulitis. Chief Complaint: [] Objective Temp Pulse Resp BP Pulse Ox 93.9 F L 64 18 150/80 99 12/23/16 16:00 12/23/16 16:00 12/23/16 16:00 12/23/16 11:38 12/23/16 16:00 AVSS , No changes in ERROL. LEFT leg cellulitis is improving. No calf tenderness to palpation. Reviewed CT scan from today and compared with study done over 4 months ago. NO EVIDENCE OF VENA CAVAL VENOUS THROMBOSIS. - Additional Data Intake & Output - Last 24 hours: Intake & Output 12/21/16 12/22/16 12/23/16 12/24/16 05:59 05:59 05:59 05:59 Intake Total 590 / 590 2380 / 2380 970 / 970 Output Total 925 / 925 1800 / 1800 Balance -335 / -335 580 / 580 970 / 970 Weight 214 lb 214 lb 214 lb - Labs 12/23/16 05:10 12/23/16 05:10 Diabetes panel 12/23/16 Range/Units 05:10 Sodium 136 (133-145) mmol/L Potassium 4.5 (3.3-5.1) mmol/L Chloride 99 (96-108) mmol/L Carbon Dioxide 24 (22-30) mmol/L BUN 13 (8-23) mg/dl Creatinine 0.9 (0.7-1.2) mg/dl Glucose 103 (70-105) mg/dL Calcium 9.3 (8.6-10.4) mg/dl AST 12 (0-37) U/l ALT 9 (0-40) U/l Alkaline Phosphatase 59 (39-117) U/L Total Protein 6.5 (5.9-8.4) gm/dL Albumin 3.6 (3.2-5.2) gm/dL Triglycerides 84 (<150) mg/dl Calcium panel 12/23/16 Range/Units 05:10 Calcium 9.3 (8.6-10.4) mg/dl Phosphorus 3.1 (2.7-4.5) mg/dL Albumin 3.6 (3.2-5.2) gm/dL Pituitary panel 12/23/16 Range/Units 05:10 Sodium 136 (133-145) mmol/L Potassium 4.5 (3.3-5.1) mmol/L Chloride 99 (96-108) mmol/L Carbon Dioxide 24 (22-30) mmol/L BUN 13 (8-23) mg/dl Creatinine 0.9 (0.7-1.2) mg/dl Glucose 103 (70-105) mg/dL Calcium 9.3 (8.6-10.4) mg/dl Adrenal panel 12/23/16 Range/Units 05:10 Sodium 136 (133-145) mmol/L Potassium 4.5 (3.3-5.1) mmol/L Chloride 99 (96-108) mmol/L Carbon Dioxide 24 (22-30) mmol/L BUN 13 (8-23) mg/dl Creatinine 0.9 (0.7-1.2) mg/dl Glucose 103 (70-105) mg/dL Calcium 9.3 (8.6-10.4) mg/dl Total Bilirubin 0.2 (0.0-1.0) mg/dL AST 12 (0-37) U/l ALT 9 (0-40) U/l Alkaline Phosphatase 59 (39-117) U/L Total Protein 6.5 (5.9-8.4) gm/dL Albumin 3.6 (3.2-5.2) gm/dL Medical - PN: A/P - Time Spent With Patient Total time spent is greater than 50% in coordination of care (as documented) at patient's floor/unit and/or counseling patient: Explained to patient and grand daughter about findings of CT scan of abdomen and pelvis done today. NEGATIVE for vena caval thrombosis. Cellulitis of LLE is improving. EXPLAINED to patient about skin, nails and hair hygiene. Wash and clean LEFT leg from knee down to and in between toes with chlorhexidine soap and use skin moisturizes daily. To continue with oral anticoagulants. OK TO DISCHARGE PATIENT. F/U at wound center in 2 weeks. 15 - 24 minutes (1) Thrombophlebitis, migratory Status: Suspected Current Visit: Yes
[2016-12-23] MEDS: ALPRAZolam 0.25 MG TABLET PO PRN (19:26)
[2016-12-24] MEDS: 0.9 % SODIUM CHLORIDE 10 ML SYRINGE IV SCH ×5 (05:48→20:04)
[2016-12-24 07:22] LABS: ALT/SGPT 9 U/l (0-40); Albumin 3.5 gm/dL (3.2-5.2); Albumin/Globulin Ratio 1.1 (1.0-2.3); Alkaline Phosphatase 56 U/L (39-117); Bilirubin,Direct < 0.2 mg/dL (0.0-0.3); Blood Urea Nitrogen 14 mg/dl (8-23); Gamma Glutamyl Transpeptidase 16 U/L (8-61); Magnesium 2.2 mg/dL (1.6-2.5); Phosphorous 3.2 mg/dL (2.7-4.5); Uric Acid 2.9 mg/dL (2.5-8.0)
[2016-12-24] MEDS: TAMSULOSIN 0.4 MG CAPSULE PO SCH (09:14)
[2016-12-24] MEDS: HYDROCHLOROTHIAZIDE 25 MG TABLET PO SCH (09:14)
[2016-12-24] MEDS: ERTAPENEM 1 GM in 0.9 % SODIUM CHLORIDE 50 ML IV SCH (09:14)
[2016-12-24] MEDS: METOPROLOL SUCCINATE 25 MG TAB.XL.24H PO SCH (09:14)
[2016-12-24] MEDS: VANCOMYCIN 1,500 MG in 0.9 % SODIUM CHLORIDE 500 ML IV SCH (10:02)
--- NOTE | 2016-12-24 12:10 | Internal Med Progress Note ---
Medical - PN: Subj Patient information: Note initiated : 12/24/16 at 12:05 pm Service Date, if different from initiated Date: [] Patient: Mak Persaud 86 y/o M admitted on 12/21/16 for Recheck of Lower Extremity/Cellulitis. Chief Complaint: [] Interval history: 12/21/16:History of present illness: Mr. Persaud is a 86 year old male with a recent history of stubborn cellulitis of his left lower extremity. He and his son tell me that he was diagnosed with left lower extremity cellulitis several weeks ago. He was given a course of oral antibiotics, and seemed to get better. Shortly after that the cellulitis recurred, and he was treated with another round of antibiotics, which seemed to improve things then. He then developed a third episode andhe was ultimately started on IV vancomycin plus oral Septra. he came in today for his final dose of vancomycin, but the son noted that his leg is now even more swollen and more red than it was a few days ago He was therefore sent over to the emergency room for evaluation. The patient reports he has not been having fever or chills. But he has been having increasing discomfort in the left lower leg. He is also noticed the increased swelling and increased redness and warmth. He is no longer wearing the compression hose on that leg. He notes he does not do a lot of sitting around, and is usually up walking around quite a bit during the day. eR evaluation did not show an elevated white blood cell count but clinically his leg is definitely getting worse. he is afebrile. white blood cell count is normal.owever, sedimentation rate is quite high at 89. C-reactive protein is also elevated at 4.4. It is felt that he is definitely failing outpatient management, and is therefore admitted for further investigation and treatment. otherwise, the patient notes that he is lightheaded when he first stands up, and tends to have poor balance, when he first tries to walk in the morning, but this resolves within a minute or so. He denies blurry vision, new eye or ear symptoms, sore throat or cough, chest pain or palpitations, chest pain or shortness of breath abdominal pain or nausea or vomiting, diarrhea or constipation. He does note nocturia 3-4 times a night, which has been an ongoing thing.Of note, he was recently diagnosed with prostate cancer and is undergoing hormonal treatment for that. Also he was diagnosed with DVT recently, and is maintained on warfarin for that. Follow-up Doppler ultrasound today showed stable DVT. 12/22: the patient says he thinks he is feeling better today. He is really not having much discomfort in his leg, and does think it is less swollen. He notes he met with Dr. Montanez earlier today, who wants to do a CAT scan. Otherwise, patient denies fever or chills, chest pain or shortness of breath, abdominal pain, dysuria. 12/23:today, the patient notes he is feeling quite well. He is still having swelling notes it can be uncomfortable to try to elevate left leg very high, especially at home. Otherwise, he denies fever or chills, chest pain or shortness of breath, abdominal pain or nausea or vomiting, diarrhea or constipation, dysuria. 12/24- improved lower extremity redness and pain however worsening swelling along with losing. On vancomycin and ertapenem. Possible discharge in 24 hours. No other concerns per nursing staff. Stable labs hemodynamics. - Constitutional Vitals: Vital Signs Temp Pulse Resp BP Pulse Ox 97.1 F L 64 18 155/81 99 12/24/16 11:33 12/24/16 11:33 12/24/16 11:33 12/24/16 11:33 12/24/16 11:33 Period Temp Pulse Resp BP Sys/Clark Pulse Ox Last 24 Hr 93.9 F-97.8 F 64-72 18-20 125-155/64-82 95-100 Intake and Output 12/23/16 12/24/16 12/24/16 21:59 05:59 13:59 Intake Total 300 / 300 100 / 100 530 / 530 Output Total 425 / 425 Balance 300 / 300 -325 / -325 530 / 530 Weight 215 lb Intake & Output: Intake & Output 12/23/16 12/24/16 12/24/16 21:59 05:59 13:59 Intake Total 300 / 300 100 / 100 530 / 530 Output Total 425 / 425 Balance 300 / 300 -325 / -325 530 / 530 Weight 215 lb Intake: IV 50 / 50 Sodium Chloride 0.9% 50 50 / 50 ml @ 100 mls/hr IV DAILY DIPTI with INVanz 1 GM Rx#: [id number] Oral 300 / 300 100 / 100 480 / 480 Output: Void Amount 425 / 425 Other: Meal Breakfast Percent of Meal Consumed 100% # Bowel Movements 3 Medical - PN: Obj Da - Labs CBC & Chem 7: 12/23/16 05:10 12/24/16 04:20 Labs: Abnormal Lab Results 12/24/16 12/24/16 12/23/16 05:20 05:20 07:20 WBC RBC Hgb Hct Eosinophils % (Manual) ESR 65 H PT 25.8 H INR 2.3 H Vancomycin Trough 16.2 H 12/23/16 12/23/16 12/22/16 05:10 05:10 03:35 WBC 4.4 L RBC 3.72 L 3.43 L Hgb 11.9 L 10.9 L Hct 35.7 L 33.1 L Eosinophils % (Manual) 8 H ESR 72 H 73 H PT 26.9 H INR 2.4 H Vancomycin Trough 12/22/16 03:35 WBC RBC Hgb Hct Eosinophils % (Manual) ESR PT 27.7 H INR 2.5 H Vancomycin Trough Meds: Medications Acetaminophen (Tylenol) 650 mg PO Q6HP PRN PRN Reason: PAIN/FEVER > 101 Acetaminophen/Hydrocodone Bitart (Wana 5/325mg) 1 tab PO Q4HP PRN PRN Reason: Pain Alprazolam (Xanax) 0.25 mg PO QHS PRN PRN Reason: Anxiety Last Admin: 12/23/16 19:26 Dose: 0.25 mg Calcium Carbonate/Glycine (Tums) 1,000 mg CHEWED Q4HP PRN PRN Reason: Dyspepsia Docusate Sodium (Colace) 100 mg PO BID PRN PRN Reason: Constipation Furosemide (Lasix) 20 mg IV BIDD DIPTI Hydrochlorothiazide (Oretic) 25 mg PO DAILY DIPTI Last Admin: 12/24/16 09:14 Dose: 25 mg Ertapenem 1 gm/ Sodium (Chloride) 50 mls @ 100 mls/hr IV DAILY DIPTI Last Infusion: 12/24/16 09:45 Dose: Infused Vancomycin HCl 1,500 mg/ (Sodium Chloride) 500 mls @ 333.333 mls/hr IV DAILY [facility]IP[facility] Last Admin: 12/24/16 10:02 Dose: 333 mls/hr Magnesium Hydroxide (Milk Of Magnesia) 30 ml PO DAILYP PRN PRN Reason: Constipation Methimazole (Methimazole) 10 mg PO MoWeFr@0900 [facility] Last Admin: 12/23/16 15:20 Dose: 10 mg Metoprolol Succinate (Toprol Xl) 12.[address] [facility] Last Admin: 12/24/16 09:14 Dose: 12.5 mg Naloxone HCl (Narcan) 0.1 mg IV Q2MIN PRN PRN Reason: Opiate Reversal Ondansetron HCl (Zofran) 4 mg IV Q6HP PRN PRN Reason: Nausea And Vomiting Sodium Chloride (Saline Flush) [address] [facility] Last Admin: 12/24/16 05:48 Dose: 10 ml Tamsulosin HCl (Flomax) 0.[address] [facility] Last Admin: 12/24/16 09:14 Dose: 0.4 mg Warfarin Sodium (Coumadin) 7.5 mg PO TuTh@1400 [facility] Warfarin Sodium (Coumadin) 5 mg PO SuMoWeFrSa@1400 [facility] Last Admin: 12/23/16 15:13 Dose: 5 mg Medical - PN: A/P - Time Spent With Patient Total time spent is greater than 50% in coordination of care (as documented) at patient's floor/unit and/or counseling patient: 25 - 35 minutes (1) Cellulitis Status: Acute Assessment and plan: * cellulitis left lower extremity- clinically improving on vancomycin/ ertapenem. Persistent induration and swelling. Start Lasix/limb elevation. Ongoing wound care * atrial fibrillation/flutter-rate controlled on metoprolol * anticoagulation n for CVA prophylaxis and chronic DVT on Coumadin * History of prostate cancer/BPH on tamsulosin * bilateral lung nodules consistent with asbestosis as per imaging * Hypertension metoprolol/hydrocodone thiazide * hyperthyroidism on methimazole * anxiety disorder on alprazolam plan * Limb elevation/wound care/diuresis * Antibiotic coverage to continue for additional 7 days, de-escalate based on cultures * Pre-existing medical condition management as above * possible discharge in 24 hourson IV antibiotics /wound care Current Visit: Yes Medical - PN: Qual - Stroke Symptom Onset Unknown: No - VTE Deep Vein Thrombosis/Pulmonary Embolism Present on Admission: No
[2016-12-24] MEDS ORDERED: WARFARIN 7.5 MG TABLET PO SCH (14:00)
[2016-12-24] MEDS: FUROSEMIDE 20 MG/2 ML VIAL IV SCH ×2 (14:44→17:05)
--- NOTE | 2016-12-24 19:02 | General Surgery Progress Note ---
Subjective Patient reports: other (Patient seen and case discussed with Hospitalist Dr. Yu. ) Narrative: Note initiated : 12/24/16 at 6:59 pm Service Date, if different from initiated Date: [] Patient: Mak Persaud 86 y/o M admitted on 12/21/16 for Recheck of Lower Extremity/Cellulitis. Chief Complaint: [] Objective Temp Pulse Resp BP Pulse Ox 97.2 F L 67 14 151/77 97 12/24/16 15:45 12/24/16 15:45 12/24/16 15:45 12/24/16 15:45 12/24/16 15:45 AVSS. No changes ERROL. On IV antibiotics for cellulitis LLE . On Anticoagulants for DVT . Stable clinically and responding to treatment. - Additional Data Intake & Output - Last 24 hours: Intake & Output 12/22/16 12/23/16 12/24/16 12/25/16 05:59 05:59 05:59 05:59 Intake Total 590 / 590 2380 / 2380 1070 / 1070 1630 / 1630 Output Total 925 / 925 1800 / 1800 425 / 425 350 / 350 Balance -335 / -335 580 / 580 645 / 645 1280 / 1280 Weight 214 lb 214 lb 215 lb - Labs 12/23/16 05:10 12/24/16 04:20 Diabetes panel 12/24/16 Range/Units 04:20 Sodium 135 (133-145) mmol/L Potassium 4.2 (3.3-5.1) mmol/L Chloride 99 (96-108) mmol/L Carbon Dioxide 25 (22-30) mmol/L BUN 14 (8-23) mg/dl Creatinine 0.9 (0.7-1.2) mg/dl Glucose 103 (70-105) mg/dL Calcium 9.2 (8.6-10.4) mg/dl AST 11 (0-37) U/l ALT 9 (0-40) U/l Alkaline Phosphatase 56 (39-117) U/L Total Protein 6.8 (5.9-8.4) gm/dL Albumin 3.5 (3.2-5.2) gm/dL Triglycerides 108 (<150) mg/dl Calcium panel 12/24/16 Range/Units 04:20 Calcium 9.2 (8.6-10.4) mg/dl Phosphorus 3.2 (2.7-4.5) mg/dL Albumin 3.5 (3.2-5.2) gm/dL Pituitary panel 12/24/16 Range/Units 04:20 Sodium 135 (133-145) mmol/L Potassium 4.2 (3.3-5.1) mmol/L Chloride 99 (96-108) mmol/L Carbon Dioxide 25 (22-30) mmol/L BUN 14 (8-23) mg/dl Creatinine 0.9 (0.7-1.2) mg/dl Glucose 103 (70-105) mg/dL Calcium 9.2 (8.6-10.4) mg/dl Adrenal panel 12/24/16 Range/Units 04:20 Sodium 135 (133-145) mmol/L Potassium 4.2 (3.3-5.1) mmol/L Chloride 99 (96-108) mmol/L Carbon Dioxide 25 (22-30) mmol/L BUN 14 (8-23) mg/dl Creatinine 0.9 (0.7-1.2) mg/dl Glucose 103 (70-105) mg/dL Calcium 9.2 (8.6-10.4) mg/dl Total Bilirubin 0.2 (0.0-1.0) mg/dL AST 11 (0-37) U/l ALT 9 (0-40) U/l Alkaline Phosphatase 56 (39-117) U/L Total Protein 6.8 (5.9-8.4) gm/dL Albumin 3.5 (3.2-5.2) gm/dL Medical - PN: A/P - Time Spent With Patient Total time spent is greater than 50% in coordination of care (as documented) at patient's floor/unit and/or counseling patient: Satisfactory clinical progress. OK for D/C from wound care point of view. F/U at wound clinic in ONE week after discharge. 15 - 24 minutes (1) Thrombophlebitis, migratory Status: Suspected Current Visit: Yes
[2016-12-24] MEDS: ALPRAZolam 0.25 MG TABLET PO PRN (20:04)
[2016-12-25] MEDS: 0.9 % SODIUM CHLORIDE 10 ML SYRINGE IV SCH ×2 (05:19)
[2016-12-25] MEDS: FUROSEMIDE 20 MG/2 ML VIAL IV SCH (08:26)
[2016-12-25] MEDS: TAMSULOSIN 0.4 MG CAPSULE PO SCH (08:26)
[2016-12-25] MEDS: METOPROLOL SUCCINATE 25 MG TAB.XL.24H PO SCH (08:26)
[2016-12-25] MEDS: HYDROCHLOROTHIAZIDE 25 MG TABLET PO SCH (08:27)
[2016-12-25] MEDS: METHIMAZOLE 10 MG TABLET PO SCH (08:27)
[2016-12-25] MEDS: ERTAPENEM 1 GM in 0.9 % SODIUM CHLORIDE 50 ML IV SCH (09:14)
[2016-12-25] MEDS: VANCOMYCIN 1,500 MG in 0.9 % SODIUM CHLORIDE 500 ML IV SCH (09:52)
[2016-12-25] MEDS ORDERED: FUROSEMIDE 20 MG/2 ML VIAL IV ONE (10:17)
--- NOTE | 2016-12-25 10:25 | Discharge Summary ---
Medical - DS: Prov Patient information: Note initiated : 12/25/16 at 10:22 am Service Date, if different from initiated Date: [] Patient: Mak Persaud 86 y/o M admitted on 12/21/16 for Recheck of Lower Extremity/Cellulitis. Chief Complaint: [] Date of admission: 12/21/16 16:34 Discharge date: 12/25/16 Primary care physician: [f_Reg Prim Care Provider] Medical - DS: Meds - Discharge Medications Prescriptions: Ertapenem [Invanz] 1 gm IV DAILY #5 vial Furosemide [Lasix] 20 mg PO DAILY #7 tablet Active and Home Medications: Home Medications Lupron Depot 22.5 mg IM 12/22/16 [History Last Taken Unknown] Warfarin [Coumadin] 5 mg PO SUMOWEFRSA@1400 12/22/16 [History Confirmed Last Taken 12/20/16] Warfarin [Coumadin] 7.5 mg PO TUTH@1400 12/22/16 [History Confirmed 12/22/16 Last Taken 12/19/16] Ertapenem [Invanz] 1 gm IV DAILY #5 vial 12/25/16 [Rx Last Taken Unknown] Furosemide [Lasix] 20 mg PO DAILY #7 tablet 12/25/16 [Rx Last Taken Unknown] Active Medications Acetaminophen (Tylenol) 650 mg PO Q6HP PRN PRN Reason: PAIN/FEVER > 101 Acetaminophen/Hydrocodone Bitart (Randolph 5/325mg) 1 tab PO Q4HP PRN PRN Reason: Pain Alprazolam (Xanax) 0.25 mg PO QHS PRN PRN Reason: Anxiety Last Admin: 12/24/16 20:04 Dose: 0.25 mg Calcium Carbonate/Glycine (Tums) 1,000 mg CHEWED Q4HP PRN PRN Reason: Dyspepsia Docusate Sodium (Colace) 100 mg PO BID PRN PRN Reason: Constipation Furosemide (Lasix) 20 mg IV BIDD [facility] Last Admin: 12/25/16 08:26 Dose: 20 mg Heparin Sodium (Porcine) (Heparin Flush) 2 ml IV Q12 DIPTI Last Admin: 12/25/16 08:27 Dose: 2 ml Hydrochlorothiazide (Oretic) 25 mg PO DAILY [facility] Last Admin: 12/25/16 08:27 Dose: 25 mg Ertapenem 1 gm/ Sodium (Chloride) 50 mls @ 100 mls/hr IV DAILY [facility] Last Admin: 12/25/16 09:14 Dose: 100 mls/hr Vancomycin HCl 1,500 mg/ (Sodium Chloride) 500 mls @ 333.333 mls/hr IV DAILY [facility] Last Admin: 12/25/16 09:52 Dose: 333 mls/hr Magnesium Hydroxide (Milk Of Magnesia) 30 ml PO DAILYP PRN PRN Reason: Constipation Methimazole (Methimazole) 10 mg PO MoWeFr@0900 [facility] Last Admin: 12/25/16 08:27 Dose: 10 mg Metoprolol Succinate (Toprol Xl) 12.5 mg PO DAILY [facility] Last Admin: 12/25/16 08:26 Dose: 12.5 mg Naloxone HCl (Narcan) 0.1 mg IV Q2MIN PRN PRN Reason: Opiate Reversal Ondansetron HCl (Zofran) 4 mg IV Q6HP PRN PRN Reason: Nausea And Vomiting Sodium Chloride (Saline Flush) 10 ml IV Q8 [facility] Last Admin: 12/25/16 05:19 Dose: 10 ml Sodium Chloride (Saline Flush) 10 ml IV Q8 [facility] Last Admin: 12/25/16 05:19 Dose: Not Given Tamsulosin HCl (Flomax) 0.4 mg PO QDAY [facility] Last Admin: 12/25/16 08:26 Dose: 0.4 mg Warfarin Sodium (Coumadin) 7.5 mg PO TuTh@1400 [facility] Last Admin: 12/24/16 14:44 Dose: 7.5 mg Warfarin Sodium (Coumadin) 5 mg PO SuMoWeFrSa@1400 [facility] Last Admin: 12/23/16 15:13 Dose: 5 mg Medical - DS: Hosp Hospital course: DISCHARGE DIAGNOSIS * Cellulitis left lower extremity In the setting of venous stasis/ lipodermatosclerosis/lymphedema- clinically improving on vancomycin/ertapenem and diuresis to improve induration/edema. continue outpatient wound care. Discharge on additional 5 days of ertapenem. 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 Persaud is a 86 year old male with a recent history of stubborn cellulitis of his left lower extremity. He and his son tell me that he was diagnosed with left lower extremity cellulitis several weeks ago. He was given a course of oral antibiotics, and seemed to get better. Shortly after that the cellulitis recurred, and he was treated with another round of antibiotics, which seemed to improve things then. He then developed a third episode andhe was ultimately started on IV vancomycin plus oral Septra. he came in today for his final dose of vancomycin, but the son noted that his leg is now even more swollen and more red than it was a few days ago He was therefore sent over to the emergency room for evaluation. The patient reports he has not been having fever or chills. But he has been having increasing discomfort in the left lower leg. He is also noticed the increased swelling and increased redness and warmth. He is no longer wearing the compression hose on that leg. He notes he does not do a lot of sitting around, and is usually up walking around quite a bit during the day. eR evaluation did not show an elevated white blood cell count but clinically his leg is definitely getting worse. he is afebrile. white blood cell count is normal.owever, sedimentation rate is quite high at 89. C-reactive protein is also elevated at 4.4. It is felt that he is definitely failing outpatient management, and is therefore admitted for further investigation and treatment. otherwise, the patient notes that he is lightheaded when he first stands up, and tends to have poor balance, when he first tries to walk in the morning, but this resolves within a minute or so. He denies blurry vision, new eye or ear symptoms, sore throat or cough, chest pain or palpitations, chest pain or shortness of breath abdominal pain or nausea or vomiting, diarrhea or constipation. He does note nocturia 3-4 times a night, which has been an ongoing thing.Of note, he was recently diagnosed with prostate cancer and is undergoing hormonal treatment for that. Also he was diagnosed with DVT recently, and is maintained on warfarin for that. Follow-up Doppler ultrasound today showed stable DVT. 12/22: the patient says he thinks he is feeling better today. He is really not having much discomfort in his leg, and does think it is less swollen. He notes he met with Dr. Montanez earlier today, who wants to do a CAT scan. Otherwise, patient denies fever or chills, chest pain or shortness of breath, abdominal pain, dysuria. 12/23:today, the patient notes he is feeling quite well. He is still having swelling notes it can be uncomfortable to try to elevate left leg very high, especially at home. Otherwise, he denies fever or chills, chest pain or shortness of breath, abdominal pain or nausea or vomiting, diarrhea or constipation, dysuria. 12/24- improved lower extremity redness and pain however worsening swelling along with losing. On vancomycin and ertapenem. Possible discharge in 24 hours. No other concerns per nursing staff. Stable labs hemodynamics. 12/25- patient doing well. No overnight events. No concerns per staff. No fever chills nausea vomiting. Improved lymphedema long with left lower extremity in duration.patient able to ambulate.no concerns per staff. Discharging medication was 5 days antibiotics along with those don't diuretics, wound care follow-up, limb elevation . Detailed discharge instructions as below Discharge diagnosis: lower extremity cellulitis - Time Spent with Patient Total time spent providing and/or coordinating discharge services: Greater than 30 minutes Medical - DS: Exam - Constitutional Vitals: Vital Signs Temp Pulse Pulse Resp BP BP Pulse Ox 12/25/16 07:46 98 12/25/16 07:29 97.0 F L 65 24 170/83 97 12/25/16 04:00 97.4 F L 67 24 154/89 94 12/25/16 00:00 97.4 F L 62 24 120/68 95 12/24/16 20:00 97.3 F L 61 24 136/76 99 12/24/16 15:45 97.2 F L 67 14 151/77 97 12/24/16 11:33 97.1 F L 64 18 155/81 99 Intake and Output 12/24/16 12/25/16 12/25/16 21:59 05:59 13:59 Intake Total 600 / 600 450 / 450 120 / 120 Output Total 750 / 750 525 / 525 600 / 600 Balance -150 / -150 -75 / -75 -480 / -480 Intake: Oral 600 / 600 450 / 450 120 / 120 Output: Void Amount 750 / 750 525 / 525 600 / 600 Other: Meal Breakfast Percent of Meal Consumed 100% Feeding Ability Independent # Voids 1 # Bowel Movements 1 Weight 202 lb 3.2 oz General appearance: cooperative, no acute distress Additional comments: improved left lower extremity lymphedema/induration No anxiety Alert oriented and non distressed ambulating Medical - DS: Data Labs on day of discharge: Labs from last 24 hours 12/25/16 12/25/16 07:59 05:07 PT 24.2 H INR 2.1 H Vancomycin Trough 14.0 Medical - DS: A/P - Patient/Caregiver Discharge Instructions Activity: as per physical therapy Diet: Cardiac Additional Instructions: Follow-up PCP in 5 days follow-up wound careNext available appointment Coumadin dosing as prior as per PCP based on INR I recommend SNF physician to check INR, CBC BMP UA as a posthospital follow-up and Chest x-ray in 1 week. Antibiotics for additional 5 days IV ertapenem low-dose diuretics Limb elevation Continue aggressive bowel regimen to prevent constipation Continue fall precautions All meals on chair sitting upright at 90 degrees to prevent aspiration Return to ER if worsening fever chills, lower extremity swelling and pain, Diarrhea, bleeding Review risk and side effect profile of medications including antibiotics. Side effect may include mild to severe reaction including rash, diarrhea, cdiff and even which can be prevented by close follow-up with PCP Refrain from smoking and alcohol Continue cardiac diet and activity as advised Discussed importance of medication adherence Please review medication list with patient prior to discharge Please schedule follow-up with PCP/Providers prior to discharge and provide printouts Portions of this chart may have been created with [employer] voice recognition software. Occasional wrong-word or ?sound-like? substitutions may have occurred due to the inherent limitations of voice recognition software. Please read the chart carefully and recognize, using context, where the substitutions have occurred. CC- PCP Prescriptions: Ertapenem [Invanz] 1 gm IV DAILY #5 vial Furosemide [Lasix] 20 mg PO DAILY #7 tablet - Problem Maintenance (1) Cellulitis Status: Acute - Follow up Plan Follow up with: Junior Montanez MD [Physician] - Herb Man MD [Primary Care Provider] - Mary Staton MD [Physician] - 01/02/17 1:30 pm Disposition: Home, Self-Care Prognosis: Fair Rehab Potential: Fair I certify that the patient requires SNF services: No Overall status at discharge: patient is progressing back to baseline Medical - DS: Qual - VTE Deep Vein Thrombosis/Pulmonary Embolism Present on Admission: No
== END 2016-12-25 13:20 | disposition home or self-care (01) | DRG 603 ==
LOC: ED 11:14 → MEDSUR 16:34
PROVIDERS: ADMIT Internal Medicine; ATTEND Internal Medicine